=== PATIENT | female | born 1975 | race Caucasian/White ===

== ENCOUNTER 2016-06-20 17:10 | Emergency (ER) | payer OTHER ==
[2016-06-20 18:19] VITALS: BP 141/79
--- NOTE | 2016-06-20 19:15 | UC ---
Allergic Reaction HPI - HPI Summary HPI Summary: Itchy spots keep showing up in new places x 2 days. Worst of symptoms on scalp under hair, also on face, upper arms, backs of knees, and somewhat on trunk. No one else in house has similar rash. Denies SOB, chest pain, vomiting, or passing out. Started metformin for the first time about 2 weeks ago for weight loss. Denies dx of DM. - History of Current Complaint Chief Complaint: UCSkin Stated Complaint: SKIN COMPLAINT (BUG BITES?) Time Seen by Provider: 06/20/16 18:53 Hx Obtained From: Patient Hx Last Menstrual Period: 06/07/16 ?: No Onset/Duration: Gradual Onset, Lasting Days Severity Initially: Mild Severity Currently: Moderate Character: Pruritus Aggrevating Factor(s): Nothing Alleviating Factor(s): Nothing Associated Signs And Symptoms: Positive: Rash. Negative: Abdominal Pain, Chest Pain, Cough Wheezing, Diaphoresis, Difficulty Breathing, Hoarseness, Lightheadedness, Nausea, Syncope, Throat Tightening, Vomiting - Related Hx Possible Reaction To: Unknown - Allergies/Home Medications Allergies/Adverse Reactions: Allergies Allergy/AdvReac Type Severity Reaction Status Date / Time Amoxicillin Allergy Hives Verified 06/20/16 17:53 Antihistamines, Allergy Shortness Verified 06/20/16 17:53 Diphenhydramine-typ of Breath Cephalexin [From Keflex] Allergy Difficulty Verified 06/20/16 17:53 Swallowing Clindamycin Allergy Difficulty Verified 06/20/16 17:53 Swallowing Penicillins Allergy Difficulty Verified 06/20/16 17:53 Swallowing Depression Medicaton Allergy Rash And Uncoded 06/20/16 17:53 Itching Home Medications: Home Medications Loratadine [Claritin 10 MG CAP] 1 tab PO DAILY 06/20/16 [History Confirmed 06/20] PMH/Surg Hx/FS Hx/Imm Hx Endocrine History Of: Denies: Thyroid Disease Cardiovascular History Of: Denies: Cardiac Disorders, Hypertension Respiratory History Of: Denies: Asthma - Surgical History Surgical History: Yes Surgery Procedure, Year, and Place: 04/07/16 Tubal Ligation - Family History Known Family History: Positive: Hypertension - Social History Alcohol Use: None Substance Use Type: None Smoking Status (MU): Former Smoker Type: Cigarettes Amount Used/How Often: 1 pack day Review of Systems Constitutional: Negative Skin: Rash Eyes: Negative ENT: Negative Respiratory: Negative Cardiovascular: Negative Gastrointestinal: Negative Genitourinary: Negative Motor: Negative Neurovascular: Negative Musculoskeletal: Negative Neurological: Negative Psychological: Negative All Other Systems Reviewed And Are Negative: Yes Physical Exam Triage Information Reviewed: Yes Appearance: Well-Appearing, Obese Vital Signs: Initial Vital Signs Temp 99.2 F 06/20/16 17:55 Pulse 93 06/20/16 17:55 Resp 16 06/20/16 17:55 BP 141/79 06/20/16 17:55 Pulse Ox 100 06/20/16 17:55 Vital Signs Reviewed: Yes Eye Exam: Normal Eyes: Positive: Conjunctiva Clear ENT Exam: Normal ENT: Positive: Normal ENT inspection, Hearing grossly normal, Pharynx normal, TMs normal Dental Exam: Normal Neck exam: Normal Neck: Positive: Supple, Nontender, No Lymphadenopathy Respiratory Exam: Normal Respiratory: Positive: Chest non-tender, Lungs clear, Normal breath sounds, No respiratory distress Cardiovascular Exam: Normal Cardiovascular: Positive: RRR, No Murmur Musculoskeletal Exam: Normal Neurological Exam: Normal Psychological Exam: Normal Skin Exam: Other - separate red swollen papules up to 1.5cm concentrated on scalp, upper arms, backs of legs, and low abdomen. Allergic Reaction Course/Dx - Differential Dx/Diagnosis Provider Diagnoses: urticaria. allergic reaction to medication. elevated blood pressure due to discomfort Discharge - Discharge Plan Condition: Stable Disposition: HOME Prescriptions: predniSONE TAB* [Deltasone TAB*] 50 mg PO DAILY #4 tab Patient Education Materials: Urticaria (ED) Referrals: BERONICA Marroquin [Primary Care Provider] - 3 Days Additional Instructions: I believe your rash is due to your recent treatment with metformin. Stop taking the metformin and call your primary care provider. If you have trouble breathing or passing out, please call 911. If you are not improving within 48 hours, please return here for care.
== END 2016-06-20 19:17 | disposition home or self-care (01) ==
LOC: UCCORT 17:10
DX: L50.0 Allergic urticaria (principal); T38.3X5A Adverse effect of insulin and oral hypoglycemic [antidiabetic] drugs, initial encounter; Y92.9 Unspecified place or not applicable; R03.0 Elevated blood-pressure reading, without diagnosis of hypertension; E66.9 Obesity, unspecified; Z88.1 Allergy status to other antibiotic agents; Z88.0 Allergy status to penicillin; Z88.8 Allergy status to other drugs, medicaments and biological substances; Z87.891 Personal history of nicotine dependence
CPT/HCPCS: 99212; G0463

== ENCOUNTER 2016-08-28 09:29 | Emergency (ER) | payer OTHER ==
[2016-08-28 10:26] VITALS: BP 131/80
--- NOTE | 2016-08-28 10:36 | UC ---
Respiratory Complaint HPI - HPI Summary HPI Summary: Patient has an increased SOB, Dyspnea, bodyaches and chills for the past 9 days. not getting better. - History of Current Complaint Chief Complaint: UCRespiratory Stated Complaint: COUGH,CONGESTION,SINUS Time Seen by Provider: 08/28/16 10:11 Hx Obtained From: Patient Hx Last Menstrual Period: "A week ago..." ?: No Onset/Duration: Sudden Onset, Lasting Days - 9, Lasting Weeks Timing: Constant Severity Initially: Moderate Severity Currently: Severe Character: Cough: Productive Aggravating Factors: Exertion, Deep Breaths, Recumbent Position Alleviating Factors: Nothing Associated Signs And Symptoms: Positive: Dyspnea, Fever, Chills - Risk Factors Pulmonary Embolism Risk Factors: Negative Cardiac Risk Factors: Negative Pseudomonas Risk Factors: Negative Tuberculosis Risk Factors: Negative - Allergies/Home Medications Allergies/Adverse Reactions: Allergies Allergy/AdvReac Type Severity Reaction Status Date / Time Amoxicillin Allergy Hives Verified 08/28/16 10:20 Antihistamines, Allergy Shortness Verified 08/28/16 10:20 Diphenhydramine-typ of Breath Cephalexin [From Keflex] Allergy Difficulty Verified 08/28/16 10:20 Swallowing Citalopram Allergy Itching Verified 08/28/16 10:20 Clindamycin Allergy Difficulty Verified 08/28/16 10:20 Swallowing Metformin Allergy Rash Verified 08/28/16 10:20 Penicillins Allergy Difficulty Verified 08/28/16 10:20 Swallowing anti-depressant for weight Allergy Swelling Uncoded 08/28/16 10:21 loss Of Face,Lips,& Throat Home Medications: Home Medications Fluticasone NASAL SPRAY 50MCG* [Flonase NASAL SPRAY 50MCG*] 2 spray BOTH NARES DAILY 08/28/16 [History Confirmed 08/28/16] Ibuprofen TAB* [Advil TAB*] 800 mg PO Q6H PRN 08/28/16 [History Confirmed ] PMH/Surg Hx/FS Hx/Imm Hx Previously Healthy: Yes Endocrine History Of: Denies: Thyroid Disease Cardiovascular History Of: Denies: Cardiac Disorders, Hypertension Respiratory History Of: Denies: Asthma - Surgical History Surgical History: Yes Surgery Procedure, Year, and Place: Tubal Ligation, 2016, [place] - Family History Known Family History: Positive: Hypertension - Social History Alcohol Use: None Substance Use Type: None Smoking Status (MU): Former Smoker Type: Cigarettes Amount Used/How Often: 1 PPD Length of Time of Smoking/Using Tobacco: 27 Years Have You Smoked in the Last Year: No When Did the Patient Quit Smoking/Using Tobacco: 05/2015 Review of Systems Constitutional: Fever, Chills, Fatigue Skin: Negative Eyes: Negative ENT: Negative Respiratory: Shortness Of Breath, Cough Cardiovascular: Negative Gastrointestinal: Negative Genitourinary: Negative Motor: Negative Neurovascular: Negative Musculoskeletal: Negative Neurological: Negative Psychological: Negative All Other Systems Reviewed And Are Negative: Yes Physical Exam Triage Information Reviewed: Yes Appearance: Well-Nourished, Ill-Appearing, Pain Distress Vital Signs: Initial Vital Signs Temp 98.5 F 08/28/16 10:16 Pulse 88 08/28/16 10:16 Resp 16 08/28/16 10:16 BP 131/80 08/28/16 10:16 Pulse Ox 100 08/28/16 10:16 Vital Signs Reviewed: Yes Eye Exam: Normal Eyes: Positive: Conjunctiva Clear ENT: Positive: Hearing grossly normal, Pharyngeal erythema, Nasal congestion, Nasal drainage, TMs normal Dental Exam: Normal Neck exam: Normal Neck: Positive: Supple, Nontender, No Lymphadenopathy Respiratory Exam: Normal Respiratory: Positive: Respiratory distress - mild, Decreased breath sounds Cardiovascular Exam: Normal Cardiovascular: Positive: RRR, No Murmur, Pulses Normal Abdominal Exam: Normal Abdomen Description: Positive: Nontender, No Organomegaly, Soft Bowel Sounds: Positive: Present Musculoskeletal Exam: Normal Musculoskeletal: Positive: Strength Intact, ROM Intact, No Edema Neurological Exam: Normal Neurological: Positive: Alert, Muscle Tone Normal Psychological Exam: Normal Skin Exam: Normal UC Diagnostic Evaluation - Laboratory O2 Sat by Pulse Oximetry: 100 Respiratory Course/Dx - Course Course Of Treatment: hx obtained, exam performed, meds reviewed, ibuprofen given xray obtained and was negative - Differential Dx/Diagnosis Provider Diagnoses: sinusitis Discharge - Discharge Plan Condition: Stable Disposition: HOME Prescriptions: DOXYcycline CAP(*) [DOXYcycline 100MG CAP(*)] 100 mg PO BID #14 cap guaiFENesin/CODIEN 100MG-10MG* [Robitussin AC 100Mg-10Mg*] 10 ml PO BEDTIME PRN #100 ml MDD 10 ml PRN Reason: Cough Additional Instructions: 1. Take the medication as prescribed. 2. Increase fluid intake and get rest. 3. Follow up with any worsening symptoms
[2016-08-28] MEDS ORDERED: Ibuprofen TAB* 400 MG PO ONE (10:43)
--- NOTE | 2016-08-28 10:47 | RAD ---
HISTORY: Shortness of breath, dyspnea COMPARISONS: None VIEWS: 2: Frontal dual-energy and lateral views of the chest. FINDINGS: CARDIOMEDIASTINAL SILHOUETTE: The cardiomediastinal silhouette is normal. NATALIE: The natalie are normal. PLEURA: The costophrenic angles are sharp. No pleural abnormalities are noted. LUNG PARENCHYMA: The lungs are clear. ABDOMEN: The upper abdomen is clear. There is no subphrenic gas. BONES AND SOFT TISSUES: No bone or soft tissue abnormalities are noted. OTHER: None. IMPRESSION: NO ACTIVE CARDIOPULMONARY DISEASE.
== END 2016-08-28 11:01 | disposition home or self-care (01) ==
LOC: UCCORT 09:29
DX: J01.90 Acute sinusitis, unspecified (principal); B96.89 Other specified bacterial agents as the cause of diseases classified elsewhere; Z87.891 Personal history of nicotine dependence
CPT/HCPCS: 71020; 99212; A9270-GY; G0463

== ENCOUNTER 2017-05-21 14:22 | Emergency (ER) | payer OTHER ==
[2017-05-21 17:00] VITALS: BP 134/82
--- NOTE | 2017-05-21 17:58 | UC ---
Ear Complaint HPI - HPI Summary HPI Summary: PT HERE WITH 3 WEEKS OF LEFT EAR PAIN. REPORTS SOME MILD INTERMITTENT YELLOW DISCHARGE AND SLIGHTLY MUFFLED HEARING. STATES SX STARTED AFER HAVING LEFT UPPER 1ST PREMOLAR PULLED AND WORSENED AFTER HAVING LEFT UPPER 2RD MOLAR FILLED. STATES TYLENOL IS HELPFUL BUT PAIN IS ALMOST UNBEARABLE WHEN TYLENOL WEARS OFF. - History of Current Complaint Chief Complaint: UCDentalProblem Stated Complaint: EAR PAIN Time Seen by Provider: 05/21/17 17:25 Hx Obtained From: Patient Hx Last Menstrual Period: "A week ago..." Onset/Duration: Gradual Onset, Lasting Weeks, Still Present Severity Initially: Moderate Severity Currently: Moderate Pain Intensity: 7 Pain Scale Used: 0-10 Numeric Alleviating Factors: OTC Meds - TYLENOL Associated Signs/Symptoms: Positive: Discharge. Negative: Foreign Body Sensation, Trauma to Ear, URI Symptoms - Allergies/Home Medications Allergies/Adverse Reactions: Allergies Allergy/AdvReac Type Severity Reaction Status Date / Time MS Amoxicillin [Amoxicillin] Allergy Hives Verified 05/21/17 17:01 MS Antihistamines, Allergy Shortness Verified 05/21/17 17:01 Diphenhydrami... of Breath [Antihistamines, Diphenhydramine-typ] MS Cephalexin [From Keflex] Allergy Difficulty Verified 05/21/17 17:01 Swallowing MS Citalopram [Citalopram] Allergy Itching Verified 05/21/17 17:01 MS Clindamycin [Clindamycin] Allergy Difficulty Verified 05/21/17 17:01 Swallowing MS Metformin [Metformin] Allergy Rash Verified 05/21/17 17:01 MS Penicillins [Penicillins] Allergy Difficulty Verified 05/21/17 17:01 Swallowing anti-depressant for weight Allergy Swelling Uncoded 05/21/17 17:01 loss Of Face,Lips,& Throat Home Medications: Home Medications Hydroxychloroquine TAB* [Plaquenil TAB*] 200 mg PO DAILY 05/21/17 [History Confirmed 05/21/17] Linaclotide (NF) [Linzess (NF)] 290 mcg PO DAILY 05/21/17 [History Confirmed ] Meloxicam [Mobic] 15 mg PO DAILY 05/21/17 [History Confirmed 05/21/17] Omeprazole CAP* [Prilosec CAP* 20 MG] 20 mg PO DAILY 05/21/17 [History Confirmed 05/21/17] PMH/Surg Hx/FS Hx/Imm Hx - Additional Past Medical History Additional PMH: RA - Surgical History Surgical History: Yes Surgery Procedure, Year, and Place: Bladder procedure 2017. Tubal Ligation, 2016, [place] - Family History Known Family History: Positive: Hypertension - Social History Alcohol Use: None Substance Use Type: None Smoking Status (MU): Former Smoker Type: Cigarettes Amount Used/How Often: 1 PPD Length of Time of Smoking/Using Tobacco: 27 Years Have You Smoked in the Last Year: No When Did the Patient Quit Smoking/Using Tobacco: 05/2015 Review of Systems Constitutional: Negative ENT: Ear Ache Respiratory: Negative Cardiovascular: Negative All Other Systems Reviewed And Are Negative: Yes Physical Exam Triage Information Reviewed: Yes Appearance: Well-Appearing, No Pain Distress, Well-Nourished Vital Signs: Initial Vital Signs Temp 98.9 F 05/21/17 16:54 Pulse 98 05/21/17 16:54 Resp 14 05/21/17 16:54 BP 134/82 05/21/17 16:54 Pulse Ox 100 05/21/17 16:54 Vital Signs Reviewed: Yes Eyes: Positive: Conjunctiva Clear ENT: Positive: Hearing grossly normal, Pharynx normal, TMs normal, Other - LEFT AURICLE ERYTHEMA AND SLIGHT EDEMA. EAC AND TM NORMAL Neck: Positive: Supple, Nontender, No Lymphadenopathy Respiratory: Positive: No respiratory distress, No accessory muscle use Cardiovascular: Positive: Pulses Normal Abdomen Description: Positive: Soft Musculoskeletal: Positive: No Edema Neurological: Positive: Alert Psychological: Positive: Age Appropriate Behavior Skin: Positive: Other - LEFT AURICLE ERYTHEMA Ear Complaint Course/Dx - Course Course Of Treatment: ON EXAM LEFT EAC AND TM UNREMARKABLE. UNCLEAR ETIOLOGY OF DISCOMFORT. LEFT AURICLE IS ERYTHEMATOUS AND VERY SLIGHTLY SWOLLEN. NON TENDER. NO SKIN LESIONS OR BREAKDOWN. GIVEN PT DISCOMFORT WILL COVER FOR POSSIBLE CELLULITIS OF EAR WITH KEFLEX AND PREDNISONE FOR POSSIBLE NERVE IRRITATION/ INFLAMMATION. ADVISED TO F/U WITH ENT. PT REPORTS RASH TYPE REACTION TO PCN. STATES SHE IS UNSURE IF HER LISTED KEFLEX ALLERGY IS A TRUE ALLERGY AND IS COMFORTABLE TAKING THIS MED AT THIS TIME. - Differential Dx/Diagnosis Provider Diagnoses: LEFT EAR PAIN, NOS Discharge - Discharge Plan Condition: Stable Disposition: HOME Prescriptions: Cephalexin CAP* [Keflex 500 CAP*] 1,000 mg PO BID #28 cap predniSONE TAB* [Deltasone TAB*] 40 mg PO DAILY #6 tab Patient Education Materials: Earache (ED) Referrals: Jerica MARTINEZ,Sharmin Trinh [Primary Care Provider] - If Needed Additional Instructions: WILL COVER FOR POSSIBLE INFECTION OF AURICLE WITH KEFLEX. PREDNISONE FOR POSSIBLE NERVE IRRITATION/INFLAMMATION. FOLLOW-UP WITH ENT FOR FURTHER EVAL. CALL TOMORROW FOR AN APPT. [facility] [place] DRS. STORY AND [facility]UL[facility] [phone] [facility] [place] (LURAY OFFICE HOURS ON TUESDAYS) DR. JULIETTE MARTINES Address: [address] [place] [id number] [facility] (Tuesdays) Phone [place]: Phone [place]: EAR PAIN, NON-SPECIFIC There are many causes of ear pain in adults. Pain that's felt in the ear can actually be coming from somewhere nearby. This is called "referred pain." Problems in the teeth, throat, or jaw joint (TMJ) often cause ear pain. Sometimes the physical exam or medical history suggests a treatable cause. If not, we may wait for the pain to go away. New symptoms may offer a clue to the cause of the pain. Report any changes to your care provider. These are some conditions that can cause ear pain, but may not be obvious from physical examination: Eardrum injury Pressure changes (barotrauma) due to swimming or shock waves Mild trauma such as Q-tip injury or finger-picking the outer ear Mild outer ear infection (swimmer's ear) Low-grade or chronic middle ear infection Mastoiditis (infection in the bone behind the ear) TMJ syndrome or arthritis of the jaw Pressure from hard earwax Tooth infection Infected tonsil Sinus infection Nerve disease such as Mireles's Palsy Follow your care provider's treatment recommendations. Let the ear rest. Don't insert cotton swabs, dig at the ear with your finger, or force your ears to "pop." If you're not improving after a few days, or if new symptoms arise, see the doctor. Watch for: Decreased hearing Spreading pain or headache Drainage or bleeding from the ear Fever Weakness of the face muscles Other new symptoms
== END 2017-05-21 18:23 | disposition home or self-care (01) ==
LOC: UCCORT 14:22
DX: H92.02 Otalgia, left ear (principal); Z87.891 Personal history of nicotine dependence
CPT/HCPCS: 99212; G0463

== ENCOUNTER 2018-06-10 13:11 | Emergency (ER) | payer OTHER ==
[2018-06-10 14:44] VITALS: BP 148/74
--- NOTE | 2018-06-10 14:56 | UC ---
Respiratory Complaint HPI - HPI Summary HPI Summary: Patient is 42 year old female , who present today to the urgent care with upper respiratory symptoms and sore throat for past 3 days. She reports sore throat that developed morning and has progressively got worse. There is associated congestion and cough which has not become productive. Also reports bilateral ear pain now. Denies any fevers at home. Some shortness present with coughing but denies any chest pain. Feels her voice has become hoarse and almost lost it but she is able to speak today. She babysat her granddaughter who was diagnosed with upper respiratory infection and pinkeye prior to onset of her symptoms. She also reports some lower abdominal pain that lasted for only 5 minutes She is on auto immune medications for psoriatic arthritis. Denies any nausea or vomiting , diarrhea or constipation. - History of Current Complaint Chief Complaint: UCRespiratory Stated Complaint: SORE THROAT,COUGH Time Seen by Provider: 06/10/18 14:53 Hx Obtained From: Patient Hx Last Menstrual Period: "A week ago..." Pain Intensity: 9 - Allergies/Home Medications Allergies/Adverse Reactions: Allergies Allergy/AdvReac Type Severity Reaction Status Date / Time amoxicillin Allergy Hives Verified 06/10/18 14:44 cephalexin [From Keflex] Allergy Swelling Verified 06/10/18 14:44 Of Face,Lips,& Throat citalopram Allergy Itching Verified 06/10/18 14:44 clindamycin Allergy Swelling Verified 06/10/18 14:44 Of Face,Lips,& Throat diphenhydramine Allergy See Comment Verified 06/10/18 14:44 metformin Allergy Rash Verified 06/10/18 14:44 Penicillins Allergy Swelling Verified 06/10/18 14:44 Of Face,Lips,& Throat anti-depressant for weight Allergy Swelling Uncoded 06/10/18 14:44 loss Of Face,Lips,& Throat Home Medications: Home Medications Acetaminophen [Acetaminophen Extra Strength] 500 mg PO 06/10/18 [History] Albuterol HFA INHALER* [Ventolin HFA Inhaler*] 1 puff INH Q4H PRN 06/10/18 [ History Confirmed 06/10/18] Fluticasone NASAL SPRAY 50MCG* [Flonase NASAL SPRAY 50MCG*] 2 spray BOTH NARES DAILY 06/10/18 [History Confirmed 06/10/18] Montelukast Sodium TAB* [Singulair TAB*] 10 mg PO DAILY 06/10/18 [History Confirmed 06/10/18] Secukinumab [Cosentyx Pen] 150 mg SQ 06/10/18 [History] PMH/Surg Hx/FS Hx/Imm Hx - Additional Past Medical History Additional PMH: Psoriatic arthritis Urinary incontinence Irritable bowel syndrome Previously Healthy: Yes - Surgical History Surgical History: Yes Surgery Procedure, Year, and Place: Bladder procedure 2017. Tubal Ligation, 2016, [place] - Family History Known Family History: Positive: Hypertension - Social History Alcohol Use: None Substance Use Type: None Smoking Status (MU): Former Smoker Type: Cigarettes Amount Used/How Often: 1 PPD Length of Time of Smoking/Using Tobacco: 27 Years Have You Smoked in the Last Year: No When Did the Patient Quit Smoking/Using Tobacco: 05/2015 Review of Systems All Other Systems Reviewed And Are Negative: Yes Constitutional: Positive: Negative Skin: Positive: Negative Eyes: Positive: Negative ENT: Positive: Sore Throat, Ear Ache, Sinus Congestion Respiratory: Positive: Cough - Productive of greenish phlegm now Cardiovascular: Positive: Negative Gastrointestinal: Positive: Abdominal Pain - Lower abdominal pain lasted 5 minutes Genitourinary: Positive: Negative Motor: Positive: Negative Neurovascular: Positive: Negative Musculoskeletal: Positive: Negative Neurological: Positive: Negative Psychological: Positive: Negative Is Patient Immunocompromised?: No - She is on immune medications for psoriatic arthritis. Physical Exam - Summary Physical Exam Summary: Physical Exam: Const: Appears well. No signs of apparent distress present. Alert and oriented x 3. Musculo: Walks with a normal gait. Head/Face: Atraumatic, normocephalic on inspection. Eyes: EOMI and PERRLA in both eyes. Conjunctivae clear. No discharge noted ENT: Hearing normal, TM normal appearing bilaterally, There is pharyngeal erythema without any exudates but there is tonsillar stone noted bilaterally. Uvula is midline. Mild anterior cervical lymphadenopathy noted. Respiratory: Respirations are unlabored. Lungs clear to auscultation bilaterally, no wheezing , rhonchi or rales noted . CVS: Regular rate and Rhythm, S1S2 normal , no murmurs identified. Extremities: Peripheral circulation is grossly normal. Pulses 2+ Abdomen : Soft, minimal tender in right and left lower quadrant, nondistended , Bowel sounds present . No guarding , rebound tenderness or rigidity noted. Skin: No lesions or rash located on the upper extremities or on the lower extremities. Neuro: Cranial nerves II to XII intact, motor and sensory intact. DTR Intact bilaterally. Mood is normal. Affect is normal. Triage Information Reviewed: Yes Vital Signs: Initial Vital Signs Temp 98.4 F 06/10/18 14:39 Pulse 96 06/10/18 14:39 Resp 18 06/10/18 14:39 BP 148/74 06/10/18 14:39 Pulse Ox 100 06/10/18 14:39 Vital Signs Reviewed: Yes Respiratory Course/Dx - Course Course Of Treatment: During the visit today, we obtained a rapid strep test which was negative . We discussed the findings and further plan to treat it as a viral syndrome . I will prescribe the cough medication and nasal decongestant to the pharmacy . Patient expressed understanding . - Differential Dx/Diagnosis Provider Diagnosis: Viral syndrome Discharge - Sign-Out/Discharge Documenting (check all that apply): Patient Departure All imaging exams completed and their final reports reviewed: No Studies - Discharge Plan Condition: Stable Disposition: HOME Prescriptions: Codeine Phosphate/Guaifenesin [Guaifen-Codeine 100-10 mg/5 ml] 5 ml PO Q6HR PRN 5 Days #1 btl MDD 20 PRN Reason: Cough Fluticasone NASAL SPRAY 50MCG* [Flonase NASAL SPRAY 50MCG*] 1 spray BOTH NARES DAILY 5 Days #1 btl Patient Education Materials: Viral Syndrome (ED) Referrals: Jerica MARTINEZ,Sharmin Trinh [Primary Care Provider] - 1 Week Additional Instructions: Please start taking the medication as prescribed to the pharmacy . Follow up with your primary care doctor in 1 week or sooner if symptoms getting worse. Salt water gargles will be helpful Keep yourself hydrated, throat lozenges as needed Tylenol or ibuprofen if you develop fever Patients blood pressure slightly high in Urgent care today , plan follow up with PCP for better control return within one month Return to Urgent care / ER if symptoms get worse. - Billing Disposition and Condition Condition: STABLE Disposition: Home
== END 2018-06-10 16:04 | disposition home or self-care (01) ==
LOC: UCCORT 13:11
DX: B34.9 Viral infection, unspecified (principal); J02.9 Acute pharyngitis, unspecified; R09.81 Nasal congestion; R05 Cough; H92.03 Otalgia, bilateral; K58.9 Irritable bowel syndrome, unspecified; R10.30 Lower abdominal pain, unspecified; Z88.0 Allergy status to penicillin; Z88.1 Allergy status to other antibiotic agents; Z88.8 Allergy status to other drugs, medicaments and biological substances; Z87.891 Personal history of nicotine dependence
CPT/HCPCS: 87651; 99212; G0463

== ENCOUNTER 2018-06-13 18:24 | Emergency (ER) | payer OTHER ==
[2018-06-13 19:02] VITALS: BP 147/101
--- NOTE | 2018-06-13 20:42 | UC ---
Respiratory Complaint HPI - HPI Summary HPI Summary: 6 days of URI symptoms including cough, congestion, sore throat and ear pain. No fever. Was seen in [facility] 3 days ago and diagnosed with viral illness. Given Flonase and cough medicine. Patient states she is not feeling any better. - History of Current Complaint Chief Complaint: UCGeneralIllness Stated Complaint: SORE THROAT Time Seen by Provider: 06/13/18 19:11 Hx Obtained From: Patient Hx Last Menstrual Period: [id number] Onset/Duration: Gradual Onset, Lasting Days, Still Present Timing: Constant Severity Initially: Moderate Severity Currently: Moderate Pain Intensity: 0 Pain Scale Used: 0-10 Numeric Character: Cough: Nonproductive Aggravating Factors: Exertion, Deep Breaths, Recumbent Position Alleviating Factors: Nothing Associated Signs And Symptoms: Positive: URI, Nasal Congestion, Hoarseness. Negative: Dyspnea, Fever, Chills, Wheezing - Allergies/Home Medications Allergies/Adverse Reactions: Allergies Allergy/AdvReac Type Severity Reaction Status Date / Time amoxicillin Allergy Hives Verified 06/13/18 19:03 cephalexin [From Keflex] Allergy Swelling Verified 06/13/18 19:03 Of Face,Lips,& Throat citalopram Allergy Itching Verified 06/13/18 19:03 clindamycin Allergy Swelling Verified 06/13/18 19:03 Of Face,Lips,& Throat diphenhydramine Allergy See Comment Verified 06/13/18 19:03 metformin Allergy Rash Verified 06/13/18 19:03 Penicillins Allergy Swelling Verified 06/13/18 19:03 Of Face,Lips,& Throat sulfamethoxazole Allergy Anaphylatic Verified 06/13/18 19:03 [From Bactrim] Shock trimethoprim [From Bactrim] Allergy Anaphylatic Verified 06/13/18 19:03 Shock anti-depressant for weight Allergy Swelling Uncoded 06/13/18 19:03 loss Of Face,Lips,& Throat PMH/Surg Hx/FS Hx/Imm Hx - Additional Past Medical History Additional PMH: PSORIATIC ARTHRITIS, IBS - Surgical History Surgical History: Yes Surgery Procedure, Year, and Place: Bladder procedure 2018. Tubal Ligation, 2016, [place] - Family History Known Family History: Positive: Hypertension - Social History Alcohol Use: None Substance Use Type: None Smoking Status (MU): Former Smoker Type: Cigarettes Amount Used/How Often: 1 PPD Length of Time of Smoking/Using Tobacco: 27 Years Have You Smoked in the Last Year: No When Did the Patient Quit Smoking/Using Tobacco: 05/2015 Review of Systems All Other Systems Reviewed And Are Negative: Yes Constitutional: Positive: Fatigue ENT: Positive: Sore Throat, Ear Ache, Nasal Discharge Respiratory: Positive: Cough Cardiovascular: Positive: Negative Gastrointestinal: Positive: Negative Physical Exam Triage Information Reviewed: Yes Appearance: Well-Appearing, No Pain Distress, Well-Nourished Vital Signs: Initial Vital Signs Temp 97.6 F 06/13/18 18:56 Pulse 88 06/13/18 18:56 Resp 18 06/13/18 18:56 BP 147/101 06/13/18 18:56 Pulse Ox 100 06/13/18 18:56 Vital Signs Reviewed: Yes Eyes: Positive: Conjunctiva Clear ENT: Positive: Hearing grossly normal, Pharynx normal, TMs normal. Negative: Tonsillar swelling Neck: Positive: Supple, Nontender, No Lymphadenopathy Respiratory Exam: Normal Cardiovascular Exam: Normal Abdomen Description: Positive: Soft Musculoskeletal: Positive: No Edema Neurological: Positive: Alert Psychological: Positive: Age Appropriate Behavior Skin: Negative: Rashes Respiratory Course/Dx - Differential Dx/Diagnosis Provider Diagnosis: Acute URI, Laryngitis Discharge - Sign-Out/Discharge Documenting (check all that apply): Patient Departure All imaging exams completed and their final reports reviewed: No Studies - Discharge Plan Condition: Stable Disposition: HOME Prescriptions: Magic Mouth Was-VIJAYA/MAAL/LIDO* 5 - 10 ml SWISH SWAL QID PRN #150 ml PRN Reason: Sore Throat Patient Education Materials: Laryngitis (ED), Upper Respiratory Infection (ED) Referrals: Jerica MARTINEZ,Sharmin Trinh [Primary Care Provider] - If Needed Additional Instructions: YOUR SYMPTOMS ARE LIKELY VIRALLY MEDIATED AND SHOULD RESOLVE ON THEIR OWN WITH TIME. NO INDICATION FOR ANTIBIOTICS AT PRESENT. REST, HYDRATE, OTC MEDS NEEDED. WILL GIVE MAGIC MOUTHWASH TO HELP WITH SORE THROAT. SEEK FOLLOW-UP IF YOU ARE NOT IMPROVING OVER THE NEXT 1-2 WEEKS. - Billing Disposition and Condition Condition: STABLE Disposition: Home
== END 2018-06-13 19:43 | disposition home or self-care (01) ==
LOC: UCEAST 18:24
DX: J06.9 Acute upper respiratory infection, unspecified (principal); J04.0 Acute laryngitis; Z87.891 Personal history of nicotine dependence; Z88.1 Allergy status to other antibiotic agents; Z88.8 Allergy status to other drugs, medicaments and biological substances; Z88.0 Allergy status to penicillin; Z88.2 Allergy status to sulfonamides
CPT/HCPCS: 99212; G0463

== ENCOUNTER 2019-04-04 19:02 | Emergency (ER) | payer OTHER ==
--- OUTSIDE RECORDS SUMMARY | 2019-04-04 19:09 | XMS REPORT | Summary of Care ---
:1975 Author Organization [facility] Address [address] [place] [address] Care Team Providers Name Role Phone Sharmin Pizano Primary Care Provider Reason for Visit Reason Comments Follow-up Psoriatic Arthritis Injection (Routine) Status Reason Specialty Diagnoses / Referred By Contact Referred To Procedures Contact Authorized Rheumatology Diagnoses Arthropathic psoriasis, unspecified Rheumatology Procedures [place] GOLIMUMAB FOR IV USE 1MG Medicine [facility] [place] [address] [place] [phone] Encounter Details Date Type Department Care Team Description 04/01/2019 Office Visit [facility] Rheumatology Laurie Wellington MD [address] [place] [address] [address] [place], [place] [id number] Psoriatic arthritis (Primary Dx); [address] [place] [address] Peggy Andrade RN [address] [place] [phone] High risk medication use; [place] [address] Carpal tunnel syndrome of left wrist; [phone] Chronic left shoulder pain Allergies Active Allergy Reactions Severity Noted Date Comments Amoxicillin Hives 01/12/2017 Antihistamines, 02/08/2017 hyperventilate Diphenhydramine-Type Sulfamethoxazole-Trimethoprim 07/04/2017 Clindamycin/Lincomycin Rash Low 01/12/2017 Erythromycin 01/18/2017 Cephalexin Rash Low 01/12/2017 Metformin And Related Other (See Comments) 01/12/2017 blisters documented as of this encounter (statuses as of 04/01/2019) Medications Medication Sig Dispensed Refills Start Date End Date Status omeprazole (PRILOSEC) Take 20 mg by 0 Active 20 MG capsule mouth daily loratadine (CLARITIN) Take 10 mg by 0 Active 10 MG tablet mouth daily montelukast Take 10 mg by 0 Active (SINGULAIR) 10 MG mouth nightly tablet VENTOLIN HFA 108 (90 0 04/21/2018 Active Base) MCG/ACT inhaler nabumetone (RELAFEN) Take 1 tablet by 60 tablet 11 09/25/2018 09/24/2019 Active 500 MG tablet mouth Two times daily as needed for Pain Hydrocortisone 1 % Apply to 30 g 0 02/06/2019 02/05/2020 Active External Ointment psoriatic patches in face and scalp twice a day. Small amount. documented as of this encounter (statuses as of 04/01/2019) Active Problems Problem Noted Date Psoriatic arthritis 04/01/2019 High risk medication use 04/01/2019 Carpal tunnel syndrome of left wrist 04/01/2019 Chronic left shoulder pain 04/01/2019 documented as of this encounter (statuses as of 04/01/2019) Immunizations Name Administration Dates Next Due Influenza Quad IM with Pres (0.5 mL dose) 01/03/2017, 04/03/2015 Tdap 03/11/2015 documented as of this encounter Social History Tobacco Use Types Packs/Day Years Used Date Former Smoker Cigarettes Quit: 04/24/2015 Smokeless Tobacco: Never Used Tobacco Cessation: Counseling Given: No Alcohol Use Drinks/Week oz/Week Comments No Sex Assigned at Date Recorded Not on file Job Start Date Occupation Industry Not on file Not on file Not on file Travel History Travel Start Travel End No recent travel history available. documented as of this encounter Last Filed Vital Signs Vital Sign Reading Time Taken Comments Blood Pressure 147/106 04/01/2019 9:26 AM EST Pulse 91 04/01/2019 9:26 AM EST Temperature 36.8 04/01/2019 9:26 AM EST C (98.2 F) Respiratory Rate 17 04/01/2019 9:26 AM EST Oxygen Saturation 96% 04/01/2019 9:26 AM EST Inhaled Oxygen Concentration - - Weight 130.6 kg (288 lb) 04/01/2019 9:26 AM EST Height 168.3 cm (5' 6.25") 04/01/2019 9:26 AM EST Body Mass Index 46.13 04/01/2019 9:26 AM EST documented in this encounter Progress Notes Laurie Wellington MD - 04/01/2019 9:30 AM EST Subjective: Patient ID: Michelle Connors is a 43 y.o. female. Chief Complaint: follow up for psoriatic arthritis HPI Michelle is here for a follow up for psoriatic arthritis. She is a patient of Dr. Gutierrez here for Simponi Araia infusion. She receives infusions every 8 weeks. She has presumed carpal tunnel syndrome of her left wrist. Today will be the 3rd dose. She feels that she is gaining weight since starting infusions. After the last dose she had break out on her rash, she did come in to see Dr. Gutierrez who believed it was a flare up of her psoriatic arthritis and recommended using hydrocortisone cream that has been helpful. Overall joint pains are better. Joint swelling on and off. Morning stiffness in the hands for a few hours. Itching of skin has become worst. She has been having increased pain in her left shoulder. She did have an injection one year ago thatwas helpful. She continues to have tingling in her left wrist. She is using the wrist splint at night. Past Medical History: Diagnosis Date Asthma GERD (gastroesophageal reflux disease) Headache Irritable bowel syndrome (IBS) Joint pain Vitamin D deficiency Past Surgical History: Procedure Laterality Date TUBAL LIGATION 2017 Family History Problem Relation Age of Onset Cancer Mother lung and cervical Heart disease Father Social History Tobacco Use Smoking status: Former Smoker Types: Cigarettes Last attempt to quit: 04/24/2015 Years since quittin.9 Smokeless tobacco: Never Used Substance Use Topics Alcohol use: No Drug use: Not on file Allergies Allergen Reactions Amoxicillin Hives Antihistamines, Diphenhydramine-Type hyperventilate Bactrim [Sulfamethoxazole-Trimethoprim] Erythromycin Metformin And Related Other (See Comments) blisters Clindamycin/Lincomycin Rash Keflex [Cephalexin] Rash Current Outpatient Medications Medication Sig Dispense Refill Hydrocortisone 1 % External Ointment Apply to psoriatic patches in face and scalp twice a day. Small amount. 30 g 0 loratadine (CLARITIN) 10 MG tablet Take 10 mg by mouth daily montelukast (SINGULAIR) 10 MG tablet Take 10 mg by mouth nightly nabumetone (RELAFEN) 500 MG tablet Take 1 tablet by mouth Two times daily as needed for Pain60 tablet 11 omeprazole (PRILOSEC) 20 MG capsule Take 20 mg by mouth daily VENTOLIN HFA 108 (90 Base) MCG/ACT inhaler Current Facility-Administered Medications Medication Dose Route Frequency Provider Last Rate Last Dose lidocaine (XYLOCAINE) 1 % 2 mL with methylPREDNISolone acetate (DEPO- MEDROL) 80 mg Intra-articular Once Laurie MD Amish Review of Systems Constitutional: Negative for chills and malaise/fatigue, fever HENT: Negative for sore throat. Eyes: Negative for blurred vision, double vision, pain and discharge. Respiratory: Negative for hemoptysis, sputum production and shortness of breath. +dry cough Cardiovascular: Negative for lower extremity swelling, chest pain and palpitations. Gastrointestinal: Negative for heartburn, nausea, vomiting, abdominal pain constipation, and diarrhea. Genitourinary: Negative for dysuria, hematuria and flank pain. Musculoskeletal: +joint pains Skin: +skin psoriasis Neurological: Negative for dizziness, sensory change, speech change, focal weakness, loss of consciousness, tingling/numbness and weakness. Endo/Heme/Allergies: Does not bruise/bleed easily. Objective: Vitals: 04/01/19 0926 BP: (!) 147/106 Pulse: 91 Resp: 17 Temp: 36.8 C (98.2 F) SpO2: 96% Physical Exam Constitutional: Alert and oriented x3, no acute distress HEENT: Normocephalic, atraumatic, PERRLA Cardiovascular: Regular rate and rhythm, S1 normal and S2 normal. Lungs: Clear to auscultation b/l. No wheezing Abdomen: Soft, non-tender Musculoskeletal: No joint tenderness or deformities Neurological: alert and oriented to person, place, and time. Extremities: no edema Skin: Skin is warm and dry. Assessment: Michelle is here for a follow up for psoriatic arthritis. She is a patient of Dr. Gutierrez here for Simponi Araia infusion. Plan: 1. Psoriatic arthritis, on simponi aria infusions 2. Paresthesias of left hand, most likely secondary to carpal tunnel syndrome 3. Left shoulder pain 4. High Risk Medication Use Plan: 1. Simponi Aria 250mg IV today 2. Decadron 4mg IV prior to infusion / pre medication 3. Routine labs ordered 4. Continue wrist splint 5. Steroid injection to left shoulder completed 6. Follow up in 8 weeks - Activities as tolerated. - Fall precautions emphasized. - Diet: low carb/low fat, more greens/vegetables, adequate hydration - Encouraged to maintain good sleep hygiene - Continue other medications as prescribed by PCP and other specialist. - DVT precautions especially long distance travel -RTC: 8 weeks PROCEDURE NOTE: after consent was obtained; and cleaning the area with iodine preparation using sterile technique, I injected left shoulder 80mg of Methylprednisolone with 2ml of 1% lidocaine. The procedure was well tolerated. The patient is asked to continue to rest the injected area for a few more days before resuming regular activities. It may be more painful for the first 1-2 days. Watch for fever, or increased swelling or persistent pain in the area. Call or return to clinic prn if such symptoms occur or the symptoms fails to improve as anticipated.Electronically signed by Laurie Wellington MD at 2018 11:14 AM ESTdocumented in this encounter Plan of Treatment Date Type Specialty Care Team Description 05/28/2019 Office Visit Rheumatology Jad Pino MD [address] [place] [address] [address]nd [address] [place] [address] [phone] Name Type Priority Associated Diagnoses Order Schedule ALT Lab Routine Psoriatic arthritis 1 Occurrences starting 04/01/2019 until 09/30/2019 AST Lab Routine Psoriatic arthritis 1 Occurrences starting 04/01/2019 until 09/30/2019 CBC Lab Routine Psoriatic arthritis 1 Occurrences starting 04/01/2019 until 10/02/2019 Creatinine with GFR Lab Routine Psoriatic arthritis 1 Occurrences starting 04/01/2019 until 10/01/2019 Sedimentation rate, Lab Routine Psoriatic arthritis 1 Occurrences starting automated 04/01/2019 until 10/02/2019 Health Maintenance Due Date Last Done Comments MMR Vaccines (1 of 1 - 07/19/1976 Standard series) Varicella Vaccines (1 of 2 - 07/19/1976 2-dose childhood series) HIV Screening 07/19/1988 Cervical Cancer Screening 5 07/19/1996 years DTaP,Tdap,and Td Vaccines (2 04/08/2015 03/11/2015 - Td) Influenza Vaccine 01/01/2019 01/03/2017, 04/03/2015 Pneumococcal Vaccine: 65+ 07/19/2040 Years (1 of 2 - PCV13) HIB Vaccines Aged Out No longer eligible based on patient's age to complete this topic Hepatitis A Vaccines Aged Out No longer eligible based on patient's age to complete this topic Hepatitis B Vaccines Aged Out No longer eligible based on patient's age to complete this topic IPV Vaccines Aged Out No longer eligible based on patient's age to complete this topic Pneumococcal Vaccine: Aged Out No longer eligible based Pediatrics (0 to 5 Years) and on patient's age to At-Risk Patients (6 to 64 complete this topic Years) documented as of this encounter Results Not on filedocumented in this encounter Visit Diagnoses Diagnosis Psoriatic arthritis - Primary Psoriatic arthropathy High risk medication use Encounter for long-term (current) use of other medications Carpal tunnel syndrome of left wrist Carpal tunnel syndrome Chronic left shoulder pain Pain in joint, shoulder region documented in this encounter Administered Medications Medication Order MAR Action Action Date Dose Rate Site Golimumab (SIMPONI ARIA) New Bag 04/01/2019 10:21 AM 250 mg 260 mL/hr Left Arm 250 mg in sodium chloride EST 0.9 % 100 mL infusion 250 mg, Intravenous, Administer over 30 Minutes, Once, Mon04/01/19 at 0945, For 1 dose, Administer infusion using a 0.22 micron filter., lidocaine (XYLOCAINE) 1 % 2 mL with Given by Other 04/01/2019 9:53 AM EST Other methylPREDNISolone acetate (DEPO-MEDROL) 80 mg Intra-articular, Once, Mon04/01/19 at 0945, For 1 dose sodium chloride 0.9 % 50 mL with New Bag 04/01/2019 10:05 AM EST 250 mL/ hr Left Arm dexamethasone sodium phosphate (DECADRON) 10 MG/ML 4 mg Intravenous, Once, Mon04/01/19 at 0945, For 1 dose documented in this encounter
--- OUTSIDE RECORDS SUMMARY | 2019-04-04 19:09 | XMS REPORT | Summary of Care ---
:1975 Author Organization [facility] Address [address] [place] [address] Care Team Providers Name Role Phone Sharmin Pizano Primary Care Provider Reason for Visit Reason Comments Follow-up Encounter Details Date Type Department Care Team Description 02/06/2019 Office Visit [facility] Rheumatology Matt-Reece, Psoriasis (Primary [address] [facility] MD Jad Dx) [place] [address] [address] [place] [phone] [address] [place] [id number] Allergies Active Allergy Reactions Severity Noted Date Comments Amoxicillin Hives 01/12/2017 Antihistamines, 02/08/2017 hyperventilate Diphenhydramine-Type Sulfamethoxazole-Trimethoprim 07/04/2017 Clindamycin/Lincomycin Rash Low 01/12/2017 Erythromycin 01/18/2017 Cephalexin Rash Low 01/12/2017 Metformin And Related Other (See Comments) 01/12/2017 blisters documented as of this encounter (statuses as of 02/07/2019) Medications Medication Sig Dispensed Refills Start Date End Date Status omeprazole Take 20 mg by 0 Active (PRILOSEC) 20 MG mouth daily capsule loratadine Take 10 mg by 0 Active (CLARITIN) 10 MG mouth daily tablet montelukast Take 10 mg by 0 Active (SINGULAIR) 10 MG mouth nightly tablet VENTOLIN HFA 108 0 04/21/2018 Active (90 Base) MCG/ACT inhaler nabumetone Take 1 tablet 60 tablet 11 09/25/2018 09/24/19 Active (RELAFEN) 500 MG by mouth Two 20 tablet times daily as needed for Pain Hydrocortisone 1 % Apply to 30 g 0 02/06/2019 02/05/20 Active External Ointment psoriatic 20 patches in face and scalp twice a day. Small amount. hydrocortisone 1 % Apply to 30 g 0 04/24/2018 02/07/20 Discontinued ointment affected area 19 (Reorder) twice a day. Small amount. documented as of this encounter (statuses as of 02/07/2019) Active Problems No known active problemsdocumented as of this encounter (statuses as of 2018) Immunizations Name Administration Dates Next Due Influenza [...] Sign Reading Time Taken Comments Blood Pressure 139/96 02/06/2019 3:47 PM EST Pulse 83 02/06/2019 3:47 PM EST Temperature 36.7 02/06/2019 3:47 PM EST C (98 F) Respiratory Rate 16 02/06/2019 3:47 PM EST Oxygen Saturation 95% 02/06/2019 3:47 PM EST Inhaled Oxygen Concentration - - Weight 130.2 kg (287 lb) 02/06/2019 3:47 PM EST Height 168.3 cm (5' 6.25") 02/06/2019 3:47 PM EST Body Mass Index 45.97 02/06/2019 3:47 PM EST documented in this encounter Progress Notes Jad Pino MD - 02/06/2019 4:00 PM EST She is seen today as an add-on. She has history of psoriatic arthritis. She has noted a few psoriatic patches over her face and over her scalp. Denies any significant joint pain. She received her Simponi Aria infusion last week, and it went without complications head. RHEUMATOLOGIC REVIEW OF SYSTEMS: Otherwise unremarkable. Vitals were reviewed. ASSESSMENT: Psoriasis flare, affecting mostly scalp and face. PLAN: I will send hydrocortisone cream to her pharmacy, which she can apply. If no improvement, she will let me know. documented in this encounter Plan of Treatment Date Type Specialty Care Team Description 04/01/2019 Office Visit Rheumatology Laurie Wellington MD [address] [facility] 2nd [place] [address] [phone] Health Maintenance Due Date Last Done Comments MMR Vaccines (1 of 1 - 07/19/1976 Standard series) HIV Screening 07/19/1988 Varicella Vaccines (1 of 2 - 07/19/1988 13+ 2-dose series) Cervical Cancer Screening 5 07/19/1996 years DTaP,Tdap,and [...] filedocumented in this encounter Visit Diagnoses Diagnosis Psoriasis - Primary Other psoriasis documented in this encounter
[2019-04-04 19:13] VITALS: BP 140/100
[2019-04-04] MEDS ORDERED: Albuterol 2.5 MG/3 ML NEB.SOL* (0.083%) INH ONE (19:41)
[2019-04-04] MEDS ORDERED: Ibuprofen TAB* 600 MG PO ONE (19:41)
--- NOTE | 2019-04-04 19:46 | UC ---
Respiratory Complaint HPI - HPI Summary HPI Summary: 43-year-old woman comes in with a chief complaint of 2 weeks of upper respiratory tract infection symptoms. Patient's had a runny nose to have a sore throat. Has sinus pressure with yellow-green rhinorrhea and now it's moved down into her chest and she has chest congestion and feel short of breath. Patient does have rheumatoid arthritis and is on immunosuppressive medication. She try some cough medicines which have not been helping. - History of Current Complaint Chief Complaint: UCRespiratory Stated Complaint: COUGH Time Seen by Provider: 04/04/19 19:35 Hx Last Menstrual Period: [id number] Pain Intensity: 8 - Allergies/Home Medications Allergies/Adverse Reactions: Allergies Allergy/AdvReac Type Severity Reaction Status Date / Time amoxicillin Allergy Hives Verified 04/04/19 19:13 cephalexin [From Keflex] Allergy Swelling Verified 04/04/19 19:13 Of Face,Lips,& Throat citalopram Allergy Itching Verified 04/04/19 19:13 clindamycin Allergy Swelling Verified 04/04/19 19:13 Of Face,Lips,& Throat diphenhydramine Allergy See Comment Verified 04/04/19 19:13 metformin Allergy Rash Verified 04/04/19 19:13 Penicillins Allergy Swelling Verified 04/04/19 19:13 Of Face,Lips,& Throat sulfamethoxazole Allergy Anaphylatic Verified 04/04/19 19:13 [From Bactrim] Shock trimethoprim [From Bactrim] Allergy Anaphylatic Verified 04/04/19 19:13 Shock anti-depressant for weight Allergy Swelling Uncoded 06/13/18 19:03 loss Of Face,Lips,& Throat PMH/Surg Hx/FS Hx/Imm Hx Previously Healthy: Yes - RHEUMATOID ARTHRITIS ON IMMUNOSUPPRESSANT - Surgical History Surgical History: Yes Surgery Procedure, Year, and Place: Bladder procedure 2018. Tubal Ligation, 2016, [place] - Family History Known Family History: Positive: Hypertension - Social History Alcohol Use: None Substance Use Type: None Smoking Status (MU): Former Smoker Type: Cigarettes Amount Used/How Often: 1 PPD Length of Time of Smoking/Using Tobacco: 27 Years Have You Smoked in the Last Year: No When Did the Patient Quit Smoking/Using Tobacco: 05/2015 Review of Systems All Other Systems Reviewed And Are Negative: Yes Constitutional: Positive: Other - SEE HPI Skin: Positive: Negative Eyes: Positive: Negative ENT: Positive: Nasal Discharge, Sinus Congestion, Sinus Pain/Tenderness Respiratory: Positive: Shortness Of Breath, Cough, Other - SEE HPI Cardiovascular: Positive: Negative Gastrointestinal: Positive: Negative Motor: Positive: Negative Neurovascular: Positive: Negative Musculoskeletal: Positive: Negative Neurological: Positive: Negative Psychological: Positive: Negative Is Patient Immunocompromised?: No Physical Exam Triage Information Reviewed: Yes Appearance: No Pain Distress, Well-Nourished, Ill-Appearing - MILD Vital Signs: Initial Vital Signs Temp 99.6 F 04/04/19 19:04 Pulse 115 04/04/19 19:04 Resp 16 04/04/19 19:04 BP 140/100 04/04/19 19:04 Pulse Ox 99 04/04/19 19:04 Vital Signs Reviewed: Yes Eye Exam: Normal Eyes: Positive: Conjunctiva Clear ENT: Positive: Pharyngeal erythema, Nasal congestion, Nasal drainage, TMs normal Neck: Positive: Supple Respiratory: Positive: Lungs clear, Normal breath sounds, No respiratory distress Cardiovascular: Positive: Tachycardia Musculoskeletal: Positive: Strength Intact, ROM Intact Neurological: Positive: Alert, Muscle Tone Normal Psychological: Positive: Age Appropriate Behavior Skin Exam: Normal Respiratory Course/Dx - Course Course Of Treatment: Patient feels improved with the nebulizer treatment. Influenza is positive. We 'll start treatment with Tamiflu. I discussed the chest x-ray with the patient I do not appreciate any pneumonia at this time. Patient is potentially immunocompromised to to her medications therefore I will treat with doxycycline. Patient has allergies to amoxicillin and cephalosporins therefore I cannot use dual therapy for potential pneumonia. Also sent with a prescription for a nebulizer machine as the nebulizer did help. Also the patient know she can by a nebulizer [id number] at [facility]. Patient follow -up with primary care doctor. Patient to the emergency department if worse. - Differential Dx/Diagnosis Provider Diagnosis: Influenza, Bronchitis with bronchospasm Discharge ED - Sign-Out/Discharge Documenting (check all that apply): Patient Departure All imaging exams completed and their final reports reviewed: No - Discharge Plan Condition: Stable Disposition: HOME Prescriptions: Albuterol 2.5MG/3ML (0.083%)* [Ventolin 2.5 MG/3 ML NEB.BUBBA*] 2.5 mg INH Q4H PRN #30 neb.bubba PRN Reason: Wheezing DOXYcycline CAP(*) [DOXYcycline 100MG CAP(*)] 100 mg PO BID #18 cap Oseltamivir CAP* [Tamiflu CAP*] 75 mg PO BID #8 cap Patient Education Materials: Acute Bronchitis (ED), Bronchospasm (ED), Influenza (ED) Referrals: Sharmin Pizano PA [Primary Care Provider] - Additional Instructions: FOLLOW UP WITH YOUR DOCTOR. GO TO THE EMERGENCY DEPARTMENT IF WORSE; SHORTNESS OF BREATH, YOU FEEL ILL OR ANY QUESTIONS OR CONCERNS. - Billing Disposition and Condition Condition: STABLE Disposition: Home
[2019-04-04 20:18] LABS: Influenza A Molecular POSITIVE (Negative)
[2019-04-04] MEDS ORDERED: DOXYcycline CAP(*) 100 MG PO ONE ×2 (20:45→20:52)
[2019-04-04] MEDS ORDERED: Oseltamivir CAP* 75 MG CAP PO ONE ×2 (20:47)
--- NOTE | 2019-04-05 18:31 | UC ---
- Progress Note Progress Note: CXR wet read correct Course/Dx - Diagnoses Provider Diagnoses: Influenza, Bronchitis with bronchospasm Discharge ED - Sign-Out/Discharge Documenting (check all that apply): Post-Discharge Follow Up All imaging exams completed and their final reports reviewed: Yes - Discharge Plan Condition: Stable Disposition: HOME Prescriptions: Albuterol 2.5MG/3ML (0.083%)* [Ventolin 2.5 MG/3 ML NEB.BUBBA*] 2.5 mg INH Q4H PRN #30 neb.bubba PRN Reason: Wheezing DOXYcycline CAP(*) [DOXYcycline 100MG CAP(*)] 100 mg PO BID #18 cap Oseltamivir CAP* [Tamiflu CAP*] 75 mg PO BID #8 cap Patient Education Materials: Influenza (ED), Acute Bronchitis (ED), Bronchospasm (ED) Referrals: Sharmin Pizano PA [Primary Care Provider] - Additional Instructions: FOLLOW UP WITH YOUR DOCTOR. GO TO THE EMERGENCY DEPARTMENT IF WORSE; SHORTNESS OF BREATH, YOU FEEL ILL OR ANY QUESTIONS OR CONCERNS. - Billing Disposition and Condition Condition: STABLE Disposition: Home
== END 2019-04-04 21:15 | disposition home or self-care (01) ==
LOC: UCEAST 19:02
DX: J11.1 Influenza due to unidentified influenza virus with other respiratory manifestations (principal); J40 Bronchitis, not specified as acute or chronic; J98.01 Acute bronchospasm; Z88.0 Allergy status to penicillin; Z88.1 Allergy status to other antibiotic agents; Z88.2 Allergy status to sulfonamides; Z88.8 Allergy status to other drugs, medicaments and biological substances; Z87.891 Personal history of nicotine dependence
CPT/HCPCS: 71046; 99213; A9270-GY; G0463